=== PATIENT | female | born 1950 | race Caucasian/White ===

== ENCOUNTER → 2024-01-19 14:32 | Outpatient (REF) | payer MEDICARE, OTHER, SELFPAY | LOC: WDC 14:32 | PROVIDERS: ATTENDING PHYSICIAN Family Medicine | DX: Z12.31 Encounter for screening mammogram for malignant neoplasm of breast (principal) | CPT/HCPCS: 77063; 77067 ==

== ENCOUNTER 2024-07-29 13:19 | Emergency (ER) | payer MEDICARE, OTHER, SELFPAY ==
[2024-07-29 13:21] VITALS: BP 137/60
[2024-07-29 13:39] LABS: % Basophils 1.3 % (0-2); % Eosinophils 2.5 % (0-6); % Immature Granulocytes 0.4 % (0-0.5); % Lymphocytes 23.1 % (20.5-51.1); % Neutrophils 63.7 % (42.2-75.2); Absolute Basophils 0.1 10^3/uL (0-0.2); Absolute Eosinophils 0.1 10^3/uL (0-0.7); Absolute Lymphocytes 1.2 10^3/uL (1.2-3.4); Absolute Monocytes 0.5 10^3/uL (0.1-0.6); Absolute Neutrophils 3.3 10^3/uL (1.4-6.5); Hematocrit 40.1 % (37.0-47.0); Hemoglobin 13.2 g/dL (12.0-16.0); Mean Corp Hgb Conc. 32.9 g/dL (33.0-37.0); Mean Corpuscular Hgb 30.5 pg (27.0-31.0); Mean Corpuscular Volume 92.6 fL (81.0-99.0); Mean Platelet Volume 10.2 fL (7.4-10.4); Nucleated Red Blood Cells % 0 %; Platelet Count 212 10^3/uL (130-400); Red Blood Cell Count 4.33 10^6/uL (4.20-5.40); Red Cell Dist. Width 12.9 % (11.5-14.5); White Blood Cell Count 5.2 10^3/uL (4.8-10.8)
[2024-07-29 13:56] LABS: C-Reactive Protein < 5.00 mg/L (0.0-10.00)
[2024-07-29 13:59] LABS: Erythrocyte Sed Rate 9 mm/hour (0-20)
[2024-07-29 14:02] LABS: ALT (SGPT) 19 U/L (0-35); AST (SGOT) 28 U/L (14-36); Albumin 4.4 g/dl (3.5-5.0); Alkaline Phosphatase 171 U/L (38-126); Blood Urea Nitrogen 15 mg/dl (7-17); Calcium 9.9 mg/dl (8.4-10.2); Carbon Dioxide 29 mmol/L (22-30); Chloride 99 mmol/L (98-107); Glucose 130 mg/dl (70-99); Potassium 4.7 mmol/L (3.5-5.1); Sodium 136 mmol/L (135-145); Total Bilirubin 0.6 mg/dl (0.2-1.3); Total Protein 7.1 g/dl (6.3-8.2); eGFR > 60.00
[2024-07-29 14:27] LABS: TSH Reflex To Free T4 3.29 uIU/ml (0.47-4.68)
[2024-07-29 15:30] VITALS: BP 127/57
--- NOTE | 2024-07-29 16:16 | ED.GENMED ---
History of Present Illness
General
Chief Complaint: Generalized Pain
Time Seen by Provider: 07/29/24 15:57
History of Present Illness
History of Present Illness:
73-year-old female presents the emergency department for evaluation of a myriad of complaints that been ongoing for the past 6 months intermittently. She reports that she has tender locations across the scalp, feels fatigued, was increasingly
irritable and anxious, lack of appetite, and blurry/double vision. The symptoms have all been ongoing for at least the past 3 to 6 months. She also notes waking up today with jaw pain that is new for her. She was referred in by her PCP for
evaluation of GCA. Denies chest pain or shortness of breath at this time. Reports she has previously seen a vamp wetter however was felt to have no underlying rheumatologic issues and thus was discharged from care
Past History
Past History
ED Past Medical History: Other (OA, aiuto immune ds)
ED Past Surgical History: None
Review of Systems
Review of Systems
Allergies reviewed?: Yes
All Other Systems: ROS reviewed and negative except as documented in HPI and ROS
Phy Exam
Physical Exam
Physical Exam:
GEN: Well appearing, NAD, WDWN
HEENT: Oral mucosa moist, no scleral icterus, no temporal artery tenderness bilaterally
Cardiac: Regular rate and rhythm, no murmurs
Lung: No respiratory distress, no tachypnea lungs clear to auscultation bilaterally
MSK: No gross deformity or injuries
Skin: Good color, no pallor or jaundice, no rashes
Neuro: AO x3, moves all extremities freely cranial nerves II through XII grossly intact, [id number] normal, [id number] normal
Psych: Calm, cooperative
Course
Orders/Labs/Results
Orders:
Orders
07/29/24 13:32
CRP [C-Reactive Protein] Urgent
Complete Blood Count/With Diff Urgent
Comprehensive Metabolic Panel Urgent
Erythrocyte Sed Rate Urgent
TSH Reflex To Free T4 Urgent
07/29/24 16:16
Electrocardiogram (*1) Urgent
Reason for Study: Other
Other Reason for Exam: jaw pain
EKG- Treatment ONCE
Abnormal Lab Results
07/29/24
13:32
MCHC 32.9 L g/dL
(33.0-37.0)
Creatinine 0.5 L mg/dL
(0.6-1.0)
Glucose 130 H mg/dl
(70-99)
Alkaline Phosphatase 171 H U/L
(38-126)
07/29/24 13:32
07/29/24 13:32
Vital Signs
Initial and Last Documented VS:
Initial Vital Signs
Temp Pulse Resp BP Pulse Ox
98.0 F 76 16 137/60 100
07/29/24 13:21 07/29/24 13:21 07/29/24 13:21 07/29/24 13:21 07/29/24 13:21
Last Documented Vital Signs
Temp Pulse Resp BP Pulse Ox
98.0 F 56 18 127/57 97
07/29/24 13:21 07/29/24 15:30 07/29/24 15:30 07/29/24 15:30 07/29/24 15:30
MDM/Problems Addressed
MDM/Problems Addressed:
Patient's exam and lab evaluation is reassuring. The inflammatory markers are also negative reassuring against giant cell arteritis. Unclear etiology to symptoms, recommend primary care follow-up as an outpatient
*Critical Care Note
Total Time (30-74mins, 75-104mins- exclusive of procedures): Not Applicable
ED Attending Note
-
Portions of this chart may have been created with voice recognition software.� Occasional wrong word or��sound alike� substitutions may have occurred due to the inherent limitations of voice recognition software.
Discharge Plan
Departure
Patient Disposition: Home (Routine Discharge)
Date of Disposition: 07/29/24
Time of Disposition: 16:38
Patient with high blood pressure during this ER visit?: No
Discharge Problem:
Fatigue, Pain of scalp, Irritability
Prescriptions:
No Action
omega-3 fatty acids-fish oil [Fish Oil Pearls] 1 EACH capsule
1 ea PO BID
Calcium And Magnesium
1 tab PO DAILY
Osteoprime
1 tab PO BID
amoxicillin-pot clavulanate 1 TABLET tablet
1 tab PO Q12 Qty: 20 0RF
collagenase clostridium histo. [Santyl] 1 APPLIC ointment
1 1 applic TP DAILY Qty: 15 0RF
Activity Restrictions/Additional Instructions:
The cause of your symptoms is not clear at this time
However, negative ESR and CRP tests can rule out giant cell arteritis
You also have normal thyroid hormone tests
Please discuss further workup with your primary care physician
Interventions
Interventions:
*Risk Screen - Suicide Last Done: 07/29/24 13:21
*General Assessment Last Done: 07/29/24 13:21
*Neglect/Abuse Screening Last Done: 07/29/24 13:21
*ED COVID-19 Vaccine History Last Done: 07/29/24 13:21
*Nursing Disposition Last Done: 07/29/24 16:51
Discharge Date and Time
Discharge Date/Time: 07/29/24 17:08
Print Language: TELUGU
== END 2024-07-29 17:08 | disposition home or self-care (01) ==
LOC: EMR 13:19
PROVIDERS: Emergency Medicine; EMERGENCY PHYSICIAN Emergency Medicine
DX: R53.83 Other fatigue (principal); R51.9 Headache, unspecified; R68.84 Jaw pain; R45.4 Irritability and anger
CPT/HCPCS: 99284; 80053; 84443; 85025; 85652; 86140; 93005

== ENCOUNTER 2024-12-12 14:12 | Emergency (ER) | payer MEDICARE, OTHER, SELFPAY ==
[2024-12-12 14:15] VITALS: BP 126/74
[2024-12-12 14:48] LABS: Hematocrit 39.9 % (37.0-47.0); Hemoglobin 13.5 g/dL (12.0-16.0); Mean Corp Hgb Conc. 33.8 g/dL (33.0-37.0); Mean Corpuscular Volume 90.1 fL (81.0-99.0); Nucleated Red Blood Cells % 0 %; Platelet Count 252 10^3/uL (130-400); Red Cell Dist. Width 12.7 % (11.5-14.5)
[2024-12-12 15:02] LABS: ALT (SGPT) 25 U/L (0-35); AST (SGOT) 24 U/L (14-36); Albumin 4.3 g/dl (3.5-5.0); Alkaline Phosphatase 147 U/L (38-126); Blood Urea Nitrogen 19 mg/dl (7-17); Calcium 9.3 mg/dl (8.4-10.2); Carbon Dioxide 27 mmol/L (22-30); Chloride 103 mmol/L (98-107); Glucose 114 mg/dl (70-99); Potassium 3.8 mmol/L (3.5-5.1); Sodium 136 mmol/L (135-145); Total Protein 7.1 g/dl (6.3-8.2); eGFR > 60.00
--- NOTE | 2024-12-12 16:00 | ED.GENMED ---
History of Present Illness
General
Chief Complaint: Extremity Pain (non-traumatic)
Source: patient
Exam Limitations: none
Time Seen by Provider: 12/12/24 15:42
History of Present Illness
History of Present Illness:
74yoF with a history of ankylosing spondylitis presenting with her for evaluation of vomiting. Patient has chronic back pain which started to worse earlier this week. She was seen by her PCP 3 days ago and prescribed prednisone which has
not been helping. She is using an OTC cream but has otherwise not been taking OTC medications for her pain. She typically manages her pain with acupuncture. She started to have vomiting today and has been unable to keep anything down. She was
told to go to the ED by her PCP. She reports some abdominal soreness but denies overt pain. She also reports feeling like both of her legs are cold from the knees down. She denies any falls but states she was bike riding last week for the
first time this summer. She denies any fevers, chills, diarrhea, difficulty urinating, chest pain, shortness of breath, paresthesias.
Past History
Past History
ED Past Medical History: Other (OA, aiuto immune ds)
ED Past Surgical History: None
Phy Exam
Physical Exam
Physical Exam:
Keeps eyes closed during majority of exam. Moans with movement of her back
General Physical Exam
General Presentation: no apparent distress
General Skin: warm and dry
General Habitus: elderly
General Mental: alert
ENT Exam
ENT Exam: normocephalic
Cardiovascular Exam
Cardiovascular Exam: regular rate/rhythm, no edema, no murmur and normal peripheral pulses (2+ DP pulses bilaterally)
Pulmonary Exam
Pulmonary Exam: lungs clear, no respiratory distress, no rales, no crackles, no rhonchi and no wheezing
Gastrointestinal Exam
Gastrointestinal Exam: non tender, soft and non distended
Neurological Exam
Neurological Exam: alert
Gordo Coma Scale
Eye Opening: Spontaneous
Verbal Response: Oriented
Motor Response: Obeys Commands
GCS Total Score: 15
Musculoskeletal Exam
Musculoskeletal Exam: other (+Tenderness in bilateral lumbar region. No skin changes.)
Skin Exam
Skin Exam: normal color and warm/dry
Course
Orders/Labs/Results
Orders:
Orders
12/12/24 14:20
US Legs, Bilateral [US Periph Venous LOWER Ext Sudheer] Urgent
Comment:
Reason For Exam: swelling and pain
12/12/24 14:27
CBC/With Diff [Complete Blood Count/With Diff] Urgent
Comprehensive Metabolic Panel Urgent
Lipase Urgent
Comment: ADD ON
12/12/24 15:56
Add On- LAB Urgent
Tests Added?: lipase
Electrocardiogram (*1) Urgent
Reason for Study: Fatigue / Weakness
CT Abd/pelvis W Iv Cont Urgent
Comment:
Reason For Exam: back pain, vomiting
EKG- Treatment ONCE
0.9% Sodium Chloride 500 ml [Nss] 500 ml IV BOLUS
HYDROmorphone [Dilaudid] 0.5 mg IV NOW STA
Ondansetron Injectable [Zofran] 4 mg IV NOW STA
12/12/24 16:55
Troponin I Urgent
12/12/24 19:09
Electrocardiogram (*1) Urgent
Reason for Study: Abdominal Pain
EKG- Treatment ONCE
12/12/24 19:50
Acetaminophen [Tylenol] 1,000 mg PO NOW STA
12/12/24 20:02
Troponin I Urgent
Abnormal Lab Results
12/12/24
14:27
MPV 11.3 H fL
(7.4-10.4)
Absolute Neuts (auto) 7.1 H 10^3/uL
(1.4-6.5)
Absolute Lymphs (auto) 1.1 L 10^3/uL
(1.2-3.4)
Absolute Monos (auto) 0.8 H 10^3/uL
(0.1-0.6)
Neutrophils % 77.9 H %
(42.2-75.2)
Lymphocytes % 12.3 L %
(20.5-51.1)
BUN 19 H mg/dl
(7-17)
Creatinine 0.5 L mg/dL
(0.6-1.0)
Glucose 114 H mg/dl
(70-99)
Alkaline Phosphatase 147 H U/L
(38-126)
12/12/24 14:27
12/12/24 14:27
Vital Signs
Initial and Last Documented VS:
Initial Vital Signs
Temp Pulse Resp BP Pulse Ox
98.2 F 52 16 126/74 100
12/12/24 14:15 12/12/24 14:15 12/12/24 14:15 12/12/24 14:15 12/12/24 14:15
Last Documented Vital Signs
Temp Pulse Resp BP Pulse Ox
98.2 F 70 18 150/81 96
12/12/24 14:15 12/12/24 20:00 12/12/24 20:00 12/12/24 20:00 12/12/24 20:00
MDM/Problems Addressed
Differential Diagnosis Includes:
74yoF here with acute on chronic low back pain. Also c/o vomiting that began today. Hx of ankylosing spondylitis, on prednisone taper x 3 days without relief. VSS. She appears uncomfortable but is non-toxic. There is tenderness in the lumbar region
on exam. She c/o feeling like her legs are cold although DP pulses are 2+ bilaterally. Differential diagnosis includes but is not limited to: pain related to ankylosing spondylitis progression, fracture, gastroenteritis, dehydration, medication side
effect
Initial ED plan: Basic labs obtained in triage which are overall unremarkable. Electrolytes WNL and creatinine at baseline. Will check troponin/EKG and CT abdomen. IV Dilaudid, Zofran, and fluid bolus.
*Pulse Oximetry
SaO2: 100
Oxygen Mode of Delivery: Room air
Patient hypoxic: no (100%)
*Critical Care Note
Total Time (30-74mins, 75-104mins- exclusive of procedures): Not Applicable
Update Note
Update Note:
EKG shows T wave changes in V2 and V3. Troponin within normal limits. CT abdomen is negative for acute findings. Patient feeling significantly improved on reassessment. Patient able to tolerate p.o. intake without any further vomiting. Repeat
EKG and troponin unchanged. She continues to deny any chest pain or shortness of breath. Patient observed sleeping after being given Tylenol. No indication for hospitalization. Supportive care discussed. She was advised to follow-up with her
PCP as well as cardiology for her abnormal EKG. ED return precautions reviewed and she was discharged in stable condition.
ED Attending Note
-
Portions of this chart may have been created with voice recognition software.� Occasional wrong word or��sound alike� substitutions may have occurred due to the inherent limitations of voice recognition software.
Discharge Plan
Departure
Patient Disposition: Home (Routine Discharge)
Date of Disposition: 12/12/24
Time of Disposition: 21:02
Patient with high blood pressure during this ER visit?: No
Discharge Problem:
Low back pain, Nausea and vomiting, Nonspecific abnormal electrocardiogram (ECG)
Instructions: Low back pain in adults
Prescriptions:
No Action
omega-3 fatty acids-fish oil [Fish Oil Pearls] 1 EACH capsule
1 ea PO BID
Calcium And Magnesium
1 tab PO DAILY
Osteoprime
1 tab PO BID
amoxicillin-pot clavulanate 1 TABLET tablet
1 tab PO Q12 Qty: 20 0RF
collagenase clostridium histo. [Santyl] 1 APPLIC ointment
1 1 applic TP DAILY Qty: 15 0RF
Referrals:
Ubaldo Zamudio MD [Family Provider, Orthopedics]
Activity Restrictions/Additional Instructions:
Take Tylenol as needed for pain. Finish your course of prednisone. You may also use lidocaine patches daily (12 hours on, 12 hours off).
Please follow-up with your family doctor tomorrow. You should also follow-up with cardiology for your abnormal EKG. Return to the ER with any new or worsening symptoms or if you develop any chest pain.
Interventions
Interventions:
*Risk Screen - Suicide Last Done: 12/12/24 14:15
*General Assessment Last Done: 12/12/24 16:52
*Neglect/Abuse Screening Last Done: 12/12/24 14:15
*ED- Fall Risk Assessment Last Done: 12/12/24 16:52
*ED COVID-19 Vaccine History Last Done: 12/12/24 16:52
*Nursing Disposition Last Done: 12/12/24 21:15
ED-Musculoskeletal Assessment Last Done: 12/12/24 16:52
ED-Skin Assessment Last Done: 12/12/24 16:52
Discharge Date and Time
Discharge Date/Time: 12/12/24 21:16
Print Language: BELARUSIAN
[2024-12-12 16:31] LABS: Lipase 68 U/L (23-300)
[2024-12-12] MEDS: NSS 500 IV (16:56)
[2024-12-12] MEDS: ZOFRAN 4 MG IV (16:56)
[2024-12-12] MEDS: DILAUDID 0.5 MG IV (16:56)
[2024-12-12 17:34] LABS: Troponin I 0.016 ng/ml
[2024-12-12] MEDS: TYLENOL 1000 MG PO (19:56)
[2024-12-12 20:00] VITALS: BP 150/81
[2024-12-12 20:34] LABS: Troponin I < 0.012 ng/ml
== END 2024-12-12 21:16 | disposition home or self-care (01) ==
LOC: EMR 14:12
PROVIDERS: Physician Assistant; EMERGENCY PHYSICIAN Student in an Organized Health Care Education/Training Program; FAMILY PHYSICIAN Family Medicine
DX: M54.50 Low back pain, unspecified (principal); R11.2 Nausea with vomiting, unspecified; R94.31 Abnormal electrocardiogram [ECG] [EKG]; M79.605 Pain in left leg; M79.604 Pain in right leg; M19.90 Unspecified osteoarthritis, unspecified site
CPT/HCPCS: 99284; 96374; 96375; 96361; 74177; 80053; 83690; 84484; 85025; 93005; 93970; Q9967

== ENCOUNTER 2024-12-14 09:52 | Emergency (ER) | payer MEDICARE, OTHER, SELFPAY ==
[2024-12-14 09:54] VITALS: BP 142/60
--- NOTE | 2024-12-14 10:57 | ED.GENMED ---
History of Present Illness
General
Chief Complaint: Generalized Pain
Source: patient and spouse
Time Seen by Provider: 12/14/24 10:40
History of Present Illness
History of Present Illness:
This patient is a 74-year-old female presents emergency department with complaints of generalized pain. She has a history of RA and AAS, and states that she chronically suffers from pain which she usually manages with Tylenol and acupuncture.
However, in the last approximately 6 days she has had an exacerbation of this chronic pain which is mostly in her bilateral knees, ankles, and also lower back. She denies bowel or bladder incontinence, perianal anesthesia, fever, chills, chest
pain, shortness of breath, abdominal pain, dysuria. She did have's several episodes of vomiting on . At that time, she was seen in the emergency department had extensive workup including CT, labs, etc. Workup was generally unremarkable,
patient was feeling better, in addition to the prednisone that she was prescribed by her family doctor she was also advised regarding lidocaine patches. Patient has been compliant with this treatment regimen and states that her symptoms are not
better. She denies any trauma or falls or other complaints. Of note, patient reports a tick bite several weeks ago and wonders if this is contributing to her symptoms. She denies subsequent rash.
Past History
Past History
ED Past Medical History: Other (OA, aiuto immune ds, RA)
ED Past Surgical History: None
Social History
Tobacco: Non-smoker
Alcohol: None
Drug: None
Personal:
Living: with family
Phy Exam
Physical Exam
Physical Exam:
GENERAL: Alert , tearful but nontoxic
EYE: pupils equal and reactive
NECK: Supple, no significant adenopathy.
ENT: o/p clr, mmm.
CARDIAC: Regular rate and rhythm .
LUNGS: Clear breath sounds bilaterally, no acute respiratory distress, no wheezes/rales/rhonchi
ABDOMEN: Soft, without focal tenderness, no r/g, no cvat
NEUROLOGICAL: Alert and oriented, no focal neuro deficits, motor 5/5,snes intact, speech clear
SKIN: Warm and dry, skin intact.
MUSCULOSKELETAL: No edema, well perfused.
PSYCH: Normal and appropriate interaction.
BACK: no rash, no ttp midline
Course
Orders/Labs/Results
Orders:
Orders
12/14/24 10:56
Gabapentin [Neurontin] 300 mg PO NOW STA
12/14/24 11:54
Lyme Progressive Urgent
12/14/24 12:49
Tramadol HCl [Ultram] 50 mg PO NOW STA
Vital Signs
Initial and Last Documented VS:
Initial Vital Signs
Temp Pulse Resp BP Pulse Ox
98.3 F 68 16 142/60 97
12/14/24 09:54 12/14/24 09:54 12/14/24 09:54 12/14/24 09:54 12/14/24 09:54
Last Documented Vital Signs
Temp Pulse Resp BP Pulse Ox
98.3 F 68 16 142/60 97
12/14/24 09:54 12/14/24 09:54 12/14/24 09:54 12/14/24 09:54 12/14/24 11:00
*Pulse Oximetry
SaO2: 97
Oxygen Mode of Delivery: Room air
Update Note
Update Note:
Patient presents to the Emergency Department with ____increase in chronic back and lower extremity pain
Number and Complexity of Problems Addressed at the Encounter
� Chronic conditions affecting care:
� Acute Exacerbation and/or Progression of Chronic Illness:
� Differential Diagnosis includes: But not limited to arthritis, AAS, trauma, etc. etc.
Amount and/or Complexity of Data to be Reviewed and Analyzed
� I performed an independent evaluation of and my interpretation is:
EKG:
CT:
Xrays:
Laboratory Studies:
Other:
� Review of other/old records reveals: ED record from several days ago reviewed. Of note, no abnormalities noted on CT or on bilateral leg ultrasound
� Clinical information was obtained by an independent historian: who is at bedside
� Prescriptions/Medications Considered but not given:
� Further testing considered but not performed:
Risk of Complications and/or Morbidity or Mortality of Patient Management
� Social determinants of health affecting care:
� Discussion with other providers (PCP, Hospitalists, Consultants, etc):
� Escalation of care including admission/observation vs risk of discharge considered: 1:40 PM patient's pain is improved but not fully resolved. No new findings. No redness warmth swelling or fever to suggest active
infection/septic arthritis. Abdomen soft and nontender. Appears to be an exacerbation of longstanding pain that she has had in the past. Discussed with her importance of close follow-up and reasons return to the ER.
ED Attending Note
-
Portions of this chart may have been created with voice recognition software.� Occasional wrong word or��sound alike� substitutions may have occurred due to the inherent limitations of voice recognition software.
Discharge Plan
Departure
Patient Disposition: Home (Routine Discharge)
Date of Disposition: 12/14/24
Time of Disposition: 13:37
Patient with high blood pressure during this ER visit?: Yes
Condition: Good
Discharge Problem:
generalized pain
Instructions: Chronic Pain (DC), BLOOD PRESSURE
Prescriptions:
New
tramadol 100 mg tablet
100 mg PO BID PRN (Reason: Pain) Qty: 13 0RF
gabapentin [Neurontin] 100 mg capsule
100 mg PO Q12H PRN (Reason: pain) Qty: 30 0RF
No Action
omega-3 fatty acids-fish oil [Fish Oil Pearls] 1 EACH capsule
1 ea PO BID
Calcium And Magnesium
1 tab PO DAILY
Osteoprime
1 tab PO BID
amoxicillin-pot clavulanate 1 TABLET tablet
1 tab PO Q12 Qty: 20 0RF
collagenase clostridium histo. [Santyl] 1 APPLIC ointment
1 1 applic TP DAILY Qty: 15 0RF
Referrals:
Rogelio Mosquera MD [Active, Orthopedics] - Next open appointment
Ubaldo Zamudio MD [Family Provider, Orthopedics]
Activity Restrictions/Additional Instructions:
IF YOU DEVELOP INCREASING OR NEW PAIN, FEVER, NUMBNESS, INCONTINENCE, CHEST PAIN, SHORTNESS OF BREATH, ABDOMINAL PAIN, VOMITING, OR OTHER WORRISOME SIGNS, PLEASE RETURN TO THE ER IMMEDIATELY!
Interventions
Interventions:
*Risk Screen - Suicide Last Done: 12/14/24 09:54
*General Assessment Last Done: 12/14/24 11:38
*Neglect/Abuse Screening Last Done: 12/14/24 09:54
*ED- Fall Risk Assessment Last Done: 12/14/24 11:38
*ED COVID-19 Vaccine History Last Done: 12/14/24 11:38
Discharge Date and Time
Print Language: UPPER SORBIAN
[2024-12-14] MEDS: NEURONTIN 300 MG PO (11:36)
[2024-12-14 11:37] VITALS: BMI 23.6
[2024-12-14 11:58] VITALS: BP 163/62
[2024-12-14 12:00] VITALS: BP 161/54
[2024-12-14] MEDS: ULTRAM 50 MG PO (12:52)
[2024-12-14 13:00] VITALS: BP 154/59
[2024-12-14 14:00] VITALS: BP 163/64
[2024-12-14 14:21] VITALS: BP 169/75
[2024-12-16 13:36] LABS: Lyme Antibody Screen, EIA Presump. Positive (Negative)
== END 2024-12-14 14:30 | disposition home or self-care (01) ==
LOC: EMR 09:52
PROVIDERS: EMERGENCY PHYSICIAN Emergency Medicine
DX: M06.9 Rheumatoid arthritis, unspecified (principal); G89.29 Other chronic pain
CPT/HCPCS: 99283; 86617; 86618

== ENCOUNTER 2024-12-16 16:05 | Emergency (ER) | payer MEDICARE, OTHER, SELFPAY ==
[2024-12-16 16:20] VITALS: BP 128/54
[2024-12-16 20:01] VITALS: BP 128/60
--- NOTE | 2024-12-16 20:45 | ED.GENMED ---
History of Present Illness
General
Chief Complaint: Musculo-Skeletal Complaint
Time Seen by Provider: 12/16/24 20:14
Nursing documentation reviewed up to this point in time: agreed with
History of Present Illness
History of Present Illness:
74-year-old female brought to the ER by family for evaluation of exacerbation of chronic pain which she feels is related to her ankylosing spondylitis. Patient has been seen twice in this emergency department for similar symptoms. She had been in
contact with her primary care physician and has been on a prednisone taper with a plan for follow-up with her doctor on Monday. Patient denies any fevers. She has been eating and drinking without difficulty. Pain is involving her bilateral feet,
knees, hips. No back pain. No reported rash. Patient did have Lyme titer sent at last ER visit as she that she may have Lyme disease.She denies general anesthesia or difficulty going to the bathroom. She denies any peripheral edema. She had
vomiting prior to her initial ER evaluation and had formal evaluation with CAT scan without specific etiology of symptoms. Patient had previously been seeing rheumatology but has not been seen by line mover in many years as she has been
utilizing acupuncture as her primary pain treatment modality. At last ER visit patient was given prescription tramadol and gabapentin which she states has not helped with her symptoms. She has occasionally been using Tylenol also with minimal
change.
Past History
Past History
ED Past Medical History: Other (OA, aiuto immune ds, RA)
ED Past Surgical History: None
Social History
Tobacco: Non-smoker
Alcohol: None
Drug: None
Personal:
Living: with family
Phy Exam
Physical Exam
Physical Exam:
Patient is awake, alert, resting in bed appears in no acute distress, mucous membranes moist, conjunctiva pink, sclera anicteric, back without focal pain on palpation of thoracic or lumbar spine, she has lidocaine patches applied across her entire
buttocks, she has a lidocaine patches applied on bilateral anterior thighs and bilateral anterior proximal lower legs, no rashes seen, 2+ DP pulses present symmetric bilateral feet, bilateral pes planus, brisk cap refill present, no erythema, no
induration, no joint effusion patient intermittently tearful while describing her history but easily able to move on stretcher without assistance, GCS is 15
Course
Orders/Labs/Results
Orders:
Orders
12/16/24 20:28
Ketorolac [Toradol] 30 mg IM NOW STA
12/16/24 21:08
Oxycodone/Acetaminophen [Percocet 5/325] 1 tablet PO NOW STA
12/16/24 22:09
Gabapentin [Neurontin] 100 mg PO NOW STA
Vital Signs
Initial and Last Documented VS:
Initial Vital Signs
Temp Pulse Resp BP Pulse Ox
98.6 F 70 20 128/54 98
12/16/24 16:20 12/16/24 16:20 12/16/24 16:20 12/16/24 16:20 12/16/24 16:20
Last Documented Vital Signs
Temp Pulse Resp BP Pulse Ox
98.6 F 69 19 118/77 100
12/16/24 16:20 12/16/24 21:00 12/16/24 21:00 12/16/24 21:00 12/16/24 21:00
MDM/Problems Addressed
Differential Diagnosis Includes:
Differential diagnosis to consider but not limited to acute exacerbation of chronic pain, acute inflammatory arthropathy, exacerbation of ankylosing spondylitis along with other etiologies considered
Chronic conditions affecting care:
anklyosing spondylitis
Comment
Comment:
I reviewed labs from prior ER visit-Lyme titer is presumptively positive however awaiting Western blot. I reviewed CT results from 12/12/2024-patient had no significant acute abnormality. Moderate diffuse colonic stool burden. No suspicious
osseous lesions identified
*Pulse Oximetry
SaO2: 98
Oxygen Mode of Delivery: Room air
Patient hypoxic: no
*Critical Care Note
Total Time (30-74mins, 75-104mins- exclusive of procedures): Not Applicable
Update Note
Update Note:
I discussed with patient feeling members present at bedside likely neuropathic nature of discomfort as she is describing it as severe but has full mobility, no overlying skin changes, good vascular blood flow to her bilateral lower extremities. I
advised patient to limit use of lidocaine patch to 1 patch at a time. I discussed with her use of medication including increased dose of Neurontin to 3 times daily. Will provide small prescription Percocet. I advised patient to have close
follow-up with her primary care physician and orthopedics as previously referred. Patient and feeling members expressed understanding of discharge plan and had no questions prior to leaving department.
ED Attending Note
-
Portions of this chart may have been created with voice recognition software.� Occasional wrong word or��sound alike� substitutions may have occurred due to the inherent limitations of voice recognition software.
Discharge Plan
Departure
Patient Disposition: Home (Routine Discharge)
Date of Disposition: 12/16/24
Time of Disposition: 22:08
Patient with high blood pressure during this ER visit?: No
Discharge Problem:
Acute exacerbation of chronic pain
Instructions: Neuropathic pain
Prescriptions:
New
oxycodone-acetaminophen [Percocet] 5-325 mg tablet
1 tab PO Q8H PRN (Reason: Pain) Qty: 7 0RF
No Action
omega-3 fatty acids-fish oil [Fish Oil Pearls] 1 EACH capsule
1 ea PO BID
Calcium And Magnesium
1 tab PO DAILY
Osteoprime
1 tab PO BID
amoxicillin-pot clavulanate 1 TABLET tablet
1 tab PO Q12 Qty: 20 0RF
collagenase clostridium histo. [Santyl] 1 APPLIC ointment
1 1 applic TP DAILY Qty: 15 0RF
tramadol 100 mg tablet
100 mg PO BID PRN (Reason: Pain) Qty: 13 0RF
gabapentin [Neurontin] 100 mg capsule
100 mg PO Q12H PRN (Reason: pain) Qty: 30 0RF
Referrals:
Carmita Zamudio MD [Family Provider, [facility]]
Activity Restrictions/Additional Instructions:
Complete course of prednisone as currently taking. Use gabapentin as previously prescribed-100 mg 3 times daily. Use Percocet for any pain uncontrolled by prednisone, gabapentin and [id number] Tylenol. Please do not take tramadol while you
are using Percocet. Please contact your primary care physician in the morning to schedule appointment for reevaluation and further care
Interventions
Interventions:
*Risk Screen - Suicide Last Done: 12/16/24 21:21
*General Assessment Last Done: 12/16/24 21:21
*Neglect/Abuse Screening Last Done: 12/16/24 21:21
*Nursing Disposition Last Done: 12/16/24 22:37
ED-Musculoskeletal Assessment Last Done: 12/16/24 21:21
Discharge Date and Time
Discharge Date/Time: 12/16/24 22:37
Print Language: WOLOF
[2024-12-16] MEDS: TORADOL 30 MG IM (20:49)
[2024-12-16 21:00] VITALS: BP 118/77
[2024-12-16] MEDS: PERCOCET 5/325 1 TABLET PO (21:27)
--- NOTE | 2024-12-16 21:27 | EDRN ---
Pt alerted RN to be unhooked to use the BR, Pt was unhooked from monitor and ambulated to the BR with steady gait.
[2024-12-16] MEDS: NEURONTIN 100 MG PO (22:24)
== END 2024-12-16 22:37 | disposition home or self-care (01) ==
LOC: EMR 16:05
PROVIDERS: EMERGENCY PHYSICIAN Emergency Medicine; FAMILY PHYSICIAN Family Medicine
DX: G89.29 Other chronic pain (principal); M45.9 Ankylosing spondylitis of unspecified sites in spine
CPT/HCPCS: 96372; 99284

== ENCOUNTER → 2025-01-27 10:00 | Outpatient (REF) | payer MEDICARE, OTHER, SELFPAY | LOC: WDC 10:00 | PROVIDERS: ATTENDING PHYSICIAN Family Medicine | DX: Z12.31 Encounter for screening mammogram for malignant neoplasm of breast (principal) | CPT/HCPCS: 77063; 77067 ==

== ENCOUNTER → 2025-01-31 08:32 | Outpatient (REF) | payer MEDICARE, OTHER, SELFPAY | LOC: WDC 08:32 | PROVIDERS: ATTENDING PHYSICIAN Family Medicine | DX: R92.8 Other abnormal and inconclusive findings on diagnostic imaging of breast (principal) | CPT/HCPCS: 76642 ==

== ENCOUNTER → 2025-02-03 14:45 | Outpatient (REF) | payer MEDICARE, OTHER, SELFPAY | LOC: EMG 14:45 | PROVIDERS: ATTENDING PHYSICIAN Psychiatry & Neurology Neurology; FAMILY PHYSICIAN Family Medicine | DX: R20.0 Anesthesia of skin (principal); R20.9 Unspecified disturbances of skin sensation | CPT/HCPCS: 95886; 95911 ==

== ENCOUNTER → 2025-03-14 09:57 | Outpatient (REF) | payer MEDICARE, OTHER, SELFPAY | LOC: RAD 09:57 | PROVIDERS: ATTENDING PHYSICIAN Family Medicine | DX: Z78.0 Asymptomatic menopausal state (principal) | CPT/HCPCS: 77080 ==